=== PATIENT | female | born 1935 | race Caucasian/White ===

== ENCOUNTER 2017-03-29 17:01 | Emergency (ER) | payer MEDICARE, OTHER ==
[2017-03-29] MEDS ORDERED: Take Home: Clindamycin HCl 150 MG Cap, 6 Cap Pack PO ONE (19:06)
[2017-03-29 19:46] VITALS: BP 184/83
--- NOTE | 2017-03-30 05:36 | ER ---
Date of Service: 03/29/2017 SUBJECTIVE: Lily presents to the emergency room with complaints of nose pain post fall. The patient states that she tripped over a rug falling forward and striking her nose on the floor. She states that she did not have loss of consciousness and is able to recall the entire event. The patient states that she is not experiencing any significant headache, nausea, or vomiting. She denies any cervical spinal pain post fall. PAST MEDICAL HISTORY: 1. Tobacco abuse disorder. 2. COPD. She does not have a doctor and is not going for preventive medical treatment. MEDICATIONS: None. ALLERGIES: 1. Zithromax. 2. Cephalexin. 3. Codeine. 4. Levaquin. 5. Penicillin. 6. Sulfa. REVIEW OF SYSTEMS: General: No fever or chills. HEENT: Please see history of present illness. Denies any malocclusion. Chest: Denies any chest contusion or discomfort. Respiratory: No shortness of breath. Cardiac: Denies any substernal chest pain. Gastrointestinal: No nausea, vomiting, or diarrhea. No melena, hematochezia, or hematemesis. Genitourinary: Denies any dysuria. Musculoskeletal: No myalgias or arthralgias. Neurologic: No fainting, blackouts, or lightheadedness. She is not experiencing any decreased level of consciousness or complaints of headache. LABORATORY STUDIES: CT scan of the patient's brain and facial bones was obtained. She did have evidence of minimally displaced mildly angulated nasal bone fracture. ASSESSMENT: Nasal bone fracture. PLAN: I did contact and speak with Dr. Jeffery at [facility]. They stated that the patient could follow up in the clinic in the early part of next week and to call [phone] to set up an appointment. I did start the patient on clindamycin 300 mg 3 times daily for 10 days to decrease her chances of developing osteomyelitis in nasal bone. She can take ibuprofen 600 mg every 6 hours as needed for pain. All questions were answered. MWK: 03/30/2017 04:51:28 MODL: 03/30/2017 05:28:49 /[id number]
--- NOTE | 2017-04-04 01:01 | ER ---
Date of Service: 03/29/2017 ADDENDUM: PHYSICAL EXAMINATION: General: This is an 82-year-old female patient, who is in no acute distress. HEENT: She does have swelling noted to her nose primarily in the right side. She does have some mild deviation of her nose towards the right. She does have evidence of clotted blood in the right naris but no evidence of any bone fragments or fractures passing through the internal or external nasal structures. She does have evidence of some crepitus to the bridge of the nose. No obvious other midface trauma noted. No other head or facial trauma. CHEST: Lungs are clear to auscultation. No chest wall trauma. Heart: Regular rate and rhythm. Abdomen: Soft and nontender. There is no hepatosplenomegaly or masses noted. Extremities: Without any acute traumatic findings. Neurologic: The patient is alert, oriented, answers all questions appropriately. Spine: No midline C-spine, thoracic, or lumbar discomfort on palpation. MWK: 04/04/2017 00:12:47 MODL: 04/04/2017 00:51:05 /[id number]
== END 2017-03-29 19:35 | disposition home or self-care (01) ==
LOC: VM.ED 17:01
DX: S02.2XXA Fracture of nasal bones, initial encounter for closed fracture (principal); J44.9 Chronic obstructive pulmonary disease, unspecified; Z88.1 Allergy status to other antibiotic agents; Z88.2 Allergy status to sulfonamides; Z88.5 Allergy status to narcotic agent; Z88.0 Allergy status to penicillin; W18.09XA Striking against other object with subsequent fall, initial encounter
CPT/HCPCS: 70450; 70486; 99284; A9270

== ENCOUNTER 2019-04-04 22:44 | Emergency (ER) | payer MEDICARE, OTHER ==
[2019-04-04 22:59] VITALS: BP 173/71; PULSE 93
[2019-04-04] MEDS ORDERED: Clindamycin HCl 150 MG Cap PO ONE (23:00)
[2019-04-04] MEDS ORDERED: Take Home: Acetaminophen/HYDROcodone 325-5 MG, 5 Tab Pack PO ONE (23:02)
[2019-04-04] MEDS ORDERED: Take Home: Clindamycin HCl 150 MG Cap, 6 Cap Pack PO ONE (23:02)
--- NOTE | 2019-04-05 03:04 | EDM.PDOC ---
ED HPI GENERAL MEDICAL PROBLEM - General Chief Complaint: ENT Problem Stated Complaint: TOOTH PAIN Time Seen by Provider: 04/04/19 22:57 Source of Information: Reports: Patient History Limitations: Reports: No Limitations - History of Present Illness INITIAL COMMENTS - FREE TEXT/NARRATIVE: PtMignon presents to ER with complaints of dental pain. She states that she lost a filling to her R upper premolar. She has noticed some swelling to the gums in this area as well. She states that the discomfort radiates into her R lateral neck and up into ear. Denies any fever or chills. No chest pain or shortness of breath. She states that she has an appointment set and has been told she needs to have the tooth pulled. Onset Date: 04/04/19 Location: Reports: Face Quality: Reports: Ache, Throbbing Right Upper Tooth/Teeth Pain Score (Numeric/FACES): 8 - Related Data Allergies Allergy/AdvReac Type Severity Reaction Status Date / Time azithromycin Allergy Rash Verified 04/04/19 22:46 cephalexin [Cephalexin] Allergy Rash Verified 04/04/19 22:46 codeine Allergy Nausea and Verified 04/04/19 22:46 Vomiting levofloxacin [From Levaquin] Allergy Rash Verified 04/04/19 22:46 Penicillins Allergy Rash Verified 04/04/19 22:46 Sulfa (Sulfonamide Allergy Rash Verified 04/04/19 22:46 Antibiotics) Home Meds: Home Meds Occuvite 1 tab PO BID 04/04/19 [History] Past Medical History HEENT History: Reports: Macular Degeneration Social & Family History - Family History Family Medical History: Noncontributory - Tobacco Use Smoking Status *Q: Current Every Day Smoker Years of Tobacco use: 67 Packs/Tins Daily: 0.7 - Caffeine Use Caffeine Use: Reports: None ED ROS GENERAL - Review of Systems Review Of Systems: See Below Constitutional: Reports: No Symptoms HEENT: Reports: Dental Pain Respiratory: Reports: No Symptoms Cardiovascular: Reports: No Symptoms Endocrine: Reports: No Symptoms GI/Abdominal: Reports: No Symptoms : Reports: No Symptoms Musculoskeletal: Reports: No Symptoms Skin: Reports: No Symptoms Neurological: Reports: No Symptoms Psychiatric: Reports: No Symptoms Hematologic/Lymphatic: Reports: No Symptoms Immunologic: Reports: No Symptoms ED EXAM, GENERAL - Physical Exam Exam: See Below Exam Limited By: No Limitations General Appearance: Alert, WD/WN, No Apparent Distress Eye Exam: Bilateral Eye: EOMI, Normal Inspection Ears: Normal External Exam, Hearing Grossly Normal Ear Exam: Bilateral Ear: Auricle Normal, Canal Normal, Other (mild preauricular discomfort on palpation.) Nose: Normal Inspection, Normal Mucosa, No Blood Throat/Mouth: Normal Inspection, Normal Lips, Normal Gums, Other (unable to fully evaluate oral cavity due to trismus. No unlateral facial or neck swelling. R upper premolar is absent a filling.) Head: Atraumatic, Normocephalic Neck: Normal Inspection, Supple, Non-Tender, Full Range of Motion Course - Vital Signs Last Recorded V/S: Last Vital Signs Temp 36.6 C 04/04/19 22:47 Pulse 93 04/04/19 22:47 Resp 18 04/04/19 22:47 BP 173/71 H 04/04/19 22:47 Pulse Ox 96 04/04/19 22:47 - Orders/Labs/Meds Meds: Medications Discontinued Medications Generic Name Dose Route Start Last Admin Trade Name Penny PRN Reason Stop Dose Admin Hydrocodone Bitart/Acetaminophen 1 packet 04/04/19 23:02 04/04/19 23:06 Take Home: Acetam/Hydrocodon 325-5 Mg, 5 Pack PO 04/04/19 23:03 1 packet ONETIME ONE Administration Clindamycin HCl 300 mg 04/04/19 23:00 Cleocin PO 04/04/19 23:01 ONETIME ONE Clindamycin HCl 1 packet 04/04/19 23:02 04/04/19 23:06 Take Home: Clindamycin Hcl 150 Mg, 6 Cap Pack PO 04/04/19 23:03 1 packet ONETIME ONE Administration Departure - Departure Time of Disposition: 23:21 Disposition: Home, Self-Care 01 Clinical Impression: Dental infection - Discharge Information Instructions: Acetaminophen; Hydrocodone tablets or capsules, Clindamycin capsules, Dental Abscess, Probiotics Referrals: Dillan Lozano MD [Primary Care Provider] - Forms: ED Department Discharge Additional Instructions: Clindamycin 150mg tab 2 tabs three times daily for 10 days [place] 5/325mg 1 tablet every 4-6 hours as needed for pain Get in to see the dentist MEAGAN Take a probiotic while you are taking your antibiotic - Assessment/Plan Plan: Clindamycin 150mg tab 2 tabs three times daily for 10 days [place] 5/325mg 1 tablet every 4-6 hours as needed for pain Get in to see the dentist MEAGAN Take a probiotic while you are taking your antibiotic
== END 2019-04-04 23:21 | disposition home or self-care (01) ==
LOC: VM.ED 22:44
DX: K04.7 Periapical abscess without sinus (principal); F17.210 Nicotine dependence, cigarettes, uncomplicated; Z88.1 Allergy status to other antibiotic agents; Z88.5 Allergy status to narcotic agent; Z88.0 Allergy status to penicillin; Z88.2 Allergy status to sulfonamides
CPT/HCPCS: 99282; 99283; A9270

== ENCOUNTER 2019-05-14 19:49 | Emergency (ER) | payer MEDICARE, OTHER ==
[2019-05-14] MEDS ORDERED: Ketorolac 30 MG/ML SDV IM ONE (20:06)
--- NOTE | 2019-05-14 20:11 | EDM.PDOC ---
ED HPI GENERAL MEDICAL PROBLEM - General Chief Complaint: General Stated Complaint: TOOTH ACHE Time Seen by Provider: 05/14/19 19:52 Source of Information: Reports: Patient History Limitations: Reports: No Limitations - History of Present Illness INITIAL COMMENTS - FREE TEXT/NARRATIVE: Patient comes into the emergency department with complaint of dental pain. Patient states that she has been seen by the dentist and has been prescribed hydrocodone and clindamycin. She's been taking that as prescribed. She states that she doesn't appointment with them on May 18 to have her tooth extracted. That she has been having increased amount of pain over the course of last 2-3 days. She denies taking any ibuprofen. She also denies using any Orajel /mouth numbing medication or ice over the area. She is here to get "an injection for the pain so I can sleep". Patient denies any other concerns or complaints. Onset: Gradual Severity: Moderate Improves with: Reports: None Worsens with: Reports: None Associated Symptoms: Reports: No Other Symptoms Treatments DOG BEHAVIORIST: Reports: Other (see below) (hydrocodone tablets, clindamycin) - Related Data Allergies Allergy/AdvReac Type Severity Reaction Status Date / Time azithromycin Allergy Rash Verified 04/04/19 22:46 cephalexin [Cephalexin] Allergy Rash Verified 04/04/19 22:46 levofloxacin [From Levaquin] Allergy Rash Verified 04/04/19 22:46 Penicillins Allergy Rash Verified 04/04/19 22:46 Sulfa (Sulfonamide Allergy Rash Verified 04/04/19 22:46 Antibiotics) codeine AdvReac Nausea and Verified 04/05/19 08:32 Vomiting Home Meds: Home Meds Occuvite 1 tab PO BID 04/04/19 [History] Past Medical History HEENT History: Reports: Macular Degeneration Social & Family History - Family History Family Medical History: Noncontributory - Caffeine Use Caffeine Use: Reports: None ED ROS ENT - Review of Systems Review Of Systems: ROS reveals no pertinent complaints other than HPI. Constitutional: Reports: No Symptoms HEENT: Reports: No Symptoms Respiratory: Reports: No Symptoms Cardiovascular: Reports: No Symptoms Endocrine: Reports: No Symptoms GI/Abdominal: Reports: No Symptoms : Reports: No Symptoms Musculoskeletal: Reports: No Symptoms Skin: Reports: No Symptoms Neurological: Reports: No Symptoms Psychiatric: Reports: No Symptoms ED EXAM, ENT - Physical Exam Exam: See Below Exam Limited By: No Limitations General Appearance: Alert, WD/WN, No Apparent Distress Nose: Normal Inspection, Normal Mucousa Mouth/Throat: Dental Pain (right back upper tooth ), Dental Tenderness, Gum Swelling Head: Atraumatic, Normocephalic. No: Facial Swelling, Facial Tenderness, Sinus Tenderness Neck: Normal Inspection, Supple, Non-Tender, Full Range of Motion Respiratory/Chest: No Respiratory Distress, No Accessory Muscle Use Cardiovascular: Normal Peripheral Pulses Neurological: Alert, Oriented, Normal Gait Psychiatric: Normal Affect, Normal Mood Skin: Warm, Dry, Intact, Normal Color Course - Orders/Labs/Meds Meds: Medications Discontinued Medications Generic Name Dose Route Start Last Admin Trade Name Freq PRN Reason Stop Dose Admin Ketorolac Tromethamine 30 mg 05/14/19 20:06 Toradol IM 05/14/19 20:07 ONETIME ONE Departure - Departure Time of Disposition: 20:25 Disposition: Home, Self-Care 01 Condition: Good Clinical Impression: Dental infection - Discharge Information *PRESCRIPTION DRUG MONITORING PROGRAM REVIEWED*: Not Applicable (pt brought prescription bottles with her from her dentist.) *COPY OF PRESCRIPTION DRUG MONITORING REPORT IN PATIENT DARSHANA: Not Applicable Instructions: Dental Abscess, [id number] Forms: ED Department Discharge Additional Instructions: 1. eat soft foods through the weekend 2. avoid extreme hot and cold food or liquid items 3. Take medications as prescribed by your dentist 4. Follow up on Thursday as scheduled to have your tooth removed 5. Can place ice over the area to help reduce pain 3 times a day for 20 minutes at a time 6. Can take ibuprofen every 6 hours as needed for discomfort 7. Call with any questions or concerns - Problem List Review Problem List Initiated/Reviewed/Updated: Yes - Assessment/Plan Assessment:: 1. dental pain 2. dental abscess-currently under dental treatment with antibiotic and pain management extraction May 18 Plan: 1. Toradol IM given in the ER. 2. Patient currently has prescription bottles with her hydrocodone and clindamycin that have been provided by her dental provider. Patient does have an appointment scheduled on May 18 have her tooth extracted. 3. Patient is looking for more medications to help with the pain and discomfort. 4. Education provided regarding the use of ibuprofen with pain and discomfort 5. Patient is encouraged to continue with the current medication regiment that her dental provider has authorized. Did discuss with the patient that we will not be providing a secondary pain medication management the ER after another provider has provided adequate amount of pain medication for her current dental concerns. Patient understands this and is willing to accept and IM medication in the ER department. 6. Patient is reminded to follow up with her dentist on May 18 for her tooth extraction. 7. All Questions and concerns were addressed prior to discharge
[2019-05-14 20:53] VITALS: BP 167/74; PULSE 86
== END 2019-05-14 20:42 | disposition home or self-care (01) ==
LOC: VM.ED 19:49
DX: K04.7 Periapical abscess without sinus (principal); Z88.2 Allergy status to sulfonamides; Z88.5 Allergy status to narcotic agent; Z88.0 Allergy status to penicillin; Z88.1 Allergy status to other antibiotic agents; Z79.899 Other long term (current) drug therapy
CPT/HCPCS: 96372; 99282; J1885

== ENCOUNTER 2019-06-15 20:16 | Emergency (ER) | payer MEDICARE, OTHER ==
[2019-06-15] MEDS ORDERED: Take Home: traMADol 50 MG, 4 Tab Pack PO ONE (20:36)
[2019-06-15 20:38] VITALS: BP 170/68; PULSE 89
--- NOTE | 2019-06-16 12:57 | EDM.PDOC ---
ED HPI GENERAL MEDICAL PROBLEM - General Chief Complaint: ENT Problem Stated Complaint: Dental pain Time Seen by Provider: 06/15/19 20:30 Source of Information: Reports: Patient History Limitations: Reports: No Limitations - History of Present Illness INITIAL COMMENTS - FREE TEXT/NARRATIVE: PtMignon presents to ER with pain to her R upper molar area. She states that she had a tooth pulled and was then seen in ER for dental infection. She was given clindamycin and took it until it started feeling better and then stopped. She states that now the pain has returned. She states that the surrounding gums are swollen. No problems with swallowing or managing her oral secretions. She states that it is the same tooth that was causing her pain in the past. Onset Date: 06/15/19 Location: Reports: Head, Face Quality: Reports: Throbbing Right upper gum Pain Score (Numeric/FACES): 8 - Related Data Allergies Allergy/AdvReac Type Severity Reaction Status Date / Time azithromycin Allergy Rash Verified 06/15/19 20:35 cephalexin [Cephalexin] Allergy Rash Verified 06/15/19 20:35 levofloxacin [From Levaquin] Allergy Rash Verified 06/15/19 20:35 Penicillins Allergy Rash Verified 06/15/19 20:35 Sulfa (Sulfonamide Allergy Rash Verified 06/15/19 20:35 Antibiotics) codeine AdvReac Nausea and Verified 06/15/19 20:35 Vomiting Home Meds: Home Meds Clindamycin HCl 300 mg PO TID 06/16/19 [History] traMADol [Ultram] 50 mg PO Q6HR PRN 06/16/19 [History] Past Medical History HEENT History: Reports: Macular Degeneration Social & Family History - Family History Family Medical History: Noncontributory - Caffeine Use Caffeine Use: Reports: None ED ROS GENERAL - Review of Systems Review Of Systems: ROS reveals no pertinent complaints other than HPI. ED EXAM, GENERAL - Physical Exam Exam: See Below Throat/Mouth: Other (Evidence of recent extraction to R upper molar with some cellulitis of surrounding gums. No large abscess noted.) Head: Atraumatic, Normocephalic Neck: Normal Inspection, Supple, Non-Tender, Full Range of Motion Course - Vital Signs Last Recorded V/S: Last Vital Signs Temp 36.8 C 06/15/19 20:16 Pulse 89 06/15/19 20:16 Resp 16 06/15/19 20:16 BP 170/68 H 06/15/19 20:16 Pulse Ox - Orders/Labs/Meds Meds: Medications Discontinued Medications Generic Name Dose Route Start Last Admin Trade Name Penny PRN Reason Stop Dose Admin Tramadol HCl 1 packet 06/15/19 20:36 06/15/19 20:42 Take Home: Tramadol 50 Mg, 4 Tab Pack PO 06/15/19 20:37 1 packet ONETIME ONE Administration Departure - Departure Time of Disposition: 20:57 Disposition: Home, Self-Care 01 Clinical Impression: Dental infection - Discharge Information Instructions: Clindamycin capsules, Tramadol tablets, Dental Abscess Referrals: Dillan Lozano MD [Primary Care Provider] - Forms: ED Department Discharge Additional Instructions: Clindamycin 150mg 2 caps 3 times a day until completely gone Tramadol 50mg 1 every 6 hours as needed for pain Follow-up with dentist MEAGAN. - Assessment/Plan Plan: Clindamycin 150mg 2 caps 3 times a day until completely gone Tramadol 50mg 1 every 6 hours as needed for pain Follow-up with dentist MEAGAN.
== END 2019-06-15 20:57 | disposition home or self-care (01) ==
LOC: VM.ED 20:16
DX: K04.7 Periapical abscess without sinus (principal); Z88.1 Allergy status to other antibiotic agents; Z88.0 Allergy status to penicillin; Z88.2 Allergy status to sulfonamides; Z88.5 Allergy status to narcotic agent
CPT/HCPCS: 99282; A9270; 99283-GF

== ENCOUNTER 2019-06-16 01:20 | Emergency (ER) | payer MEDICARE, OTHER ==
[2019-06-16] MEDS ORDERED: Ketorolac 30 MG/ML SDV IM ONE (01:32)
[2019-06-16] MEDS ORDERED: Take Home: Acetaminophen/HYDROcodone 325-5 MG, 5 Tab Pack PO ONE (01:34)
[2019-06-16 02:01] VITALS: BP 168/71; PULSE 82
--- NOTE | 2019-06-16 13:04 | EDM.PDOC ---
ED HPI GENERAL MEDICAL PROBLEM - General Chief Complaint: ENT Problem Stated Complaint: Dental pain Time Seen by Provider: 06/16/19 01:25 Source of Information: Reports: Patient History Limitations: Reports: No Limitations - History of Present Illness INITIAL COMMENTS - FREE TEXT/NARRATIVE: Pt. was seen in ER earlier in the evening with complaints of dental pain. Please refer to her ED documentation. Pt. was given Tramadol for pain, and presents back to ER requesting "stronger medicine" and "the shot they gave me last time". It appears she was given an injection of toradol as well as [place]. Denies any recent trauma. No change in symptoms, she states that the tramadol is just not working. Onset: Today Location: Reports: Head, Face Treatments RESULTS TECHNICIAN: Reports: Other (see below) Other Treatments RESULTS TECHNICIAN: Clindamycin, Tramadol Right upper dental Pain Score (Numeric/FACES): 10 - Related Data Allergies Allergy/AdvReac Type Severity Reaction Status Date / Time azithromycin Allergy Rash Verified 06/15/19 20:35 cephalexin [Cephalexin] Allergy Rash Verified 06/15/19 20:35 levofloxacin [From Levaquin] Allergy Rash Verified 06/15/19 20:35 Penicillins Allergy Rash Verified 06/15/19 20:35 Sulfa (Sulfonamide Allergy Rash Verified 06/15/19 20:35 Antibiotics) codeine AdvReac Nausea and Verified 06/15/19 20:35 Vomiting Home Meds: Home Meds Clindamycin HCl 300 mg PO TID 06/16/19 [History] traMADol [Ultram] 50 mg PO Q6HR PRN 06/16/19 [History] Past Medical History HEENT History: Reports: Macular Degeneration Social & Family History - Family History Family Medical History: Noncontributory - Caffeine Use Caffeine Use: Reports: None ED ROS GENERAL - Review of Systems Review Of Systems: ROS reveals no pertinent complaints other than HPI. ED EXAM, GENERAL - Physical Exam Exam: See Below Exam Limited By: No Limitations General Appearance: Alert, WD/WN, No Apparent Distress Throat/Mouth: Other (Edema and erythema surrounding R upper molar. No large abscess noted.) Head: Atraumatic, Normocephalic Neck: Normal Inspection, Supple, Non-Tender, Full Range of Motion Course - Vital Signs Last Recorded V/S: Last Vital Signs Temp 36.8 C 06/16/19 01:20 Pulse 82 06/16/19 01:20 Resp 16 06/16/19 01:20 BP 168/71 H 06/16/19 01:20 Pulse Ox - Orders/Labs/Meds Meds: Medications Discontinued Medications Generic Name Dose Route Start Last Admin Trade Name Pneny PRN Reason Stop Dose Admin Hydrocodone Bitart/Acetaminophen 1 packet 06/16/19 01:34 06/16/19 01:35 Take Home: Acetam/Hydrocodon 325-5 Mg, 5 Pack PO 06/16/19 01:35 1 packet ONETIME ONE Administration Ketorolac Tromethamine 15 mg 06/16/19 01:32 06/16/19 01:35 Toradol IM 06/16/19 01:33 15 mg ONETIME ONE Administration Departure - Departure Time of Disposition: 01:50 Disposition: Home, Self-Care 01 Clinical Impression: Dental infection - Discharge Information Instructions: Dental Abscess, [id number] Forms: ED Department Discharge Additional Instructions: Continue with Clindamycin [place] 5/325mg 1 every 4-6 hours as needed for pain Follow-up with dentist MEAGAN. - Assessment/Plan Plan: Continue with Clindamycin [place] 5/325mg 1 every 4-6 hours as needed for pain Follow-up with dentist MEAGAN.
== END 2019-06-16 01:50 | disposition home or self-care (01) ==
LOC: VM.ED 01:20
DX: K04.7 Periapical abscess without sinus (principal); Z88.1 Allergy status to other antibiotic agents; Z88.5 Allergy status to narcotic agent; Z88.0 Allergy status to penicillin
CPT/HCPCS: 96372; 99282; A9270; J1885; 99283-GF

== ENCOUNTER 2019-08-10 15:42 | Emergency (ER) | payer MEDICARE, OTHER ==
--- NOTE | 2019-08-10 16:11 | EDM.PDOC ---
ED HPI GENERAL MEDICAL PROBLEM - General Stated Complaint: SINUS/COLD Time Seen by Provider: 08/10/19 15:57 Source of Information: Reports: Patient History Limitations: Reports: No Limitations - History of Present Illness INITIAL COMMENTS - FREE TEXT/NARRATIVE: Pt with congestion and sinus pressure for 5 days No fever Clear nasal drainage Has not tried OTC meds for symptomatic relief Onset: Gradual Duration: Day(s): (5) Location: Reports: Head, Face - Related Data Allergies Allergy/AdvReac Type Severity Reaction Status Date / Time azithromycin Allergy Rash Verified 06/15/19 20:35 cephalexin [Cephalexin] Allergy Rash Verified 06/15/19 20:35 levofloxacin [From Levaquin] Allergy Rash Verified 06/15/19 20:35 Penicillins Allergy Rash Verified 06/15/19 20:35 Sulfa (Sulfonamide Allergy Rash Verified 06/15/19 20:35 Antibiotics) codeine AdvReac Nausea and Verified 06/15/19 20:35 Vomiting Home Meds: Home Meds traMADol [Ultram] 50 mg PO Q6HR PRN 06/16/19 [History] Past Medical History HEENT History: Reports: Macular Degeneration Social & Family History - Family History Family Medical History: Noncontributory - Caffeine Use Caffeine Use: Reports: None ED ROS ENT - Review of Systems Review Of Systems: See Below HEENT: Reports: Ear Pain, Throat Pain, Other (Sinus pressure Clear nasal drainage) Respiratory: Reports: No Symptoms ED EXAM, ENT - Physical Exam Exam: See Below Exam Limited By: No Limitations Ears: Normal TMs Nose: Clear Rhinorrhea Mouth/Throat: Normal Oropharynx Neck: Supple Respiratory/Chest: Lungs Clear Course - Re-Assessments/Exams Free Text/Narrative Re-Assessment/Exam: 08/10/19 16:09 Pt insists on antibiotics Tried to explain to pt that antibiotics will not improve viral infections Pt to get OTC meds for congestion Departure - Departure Time of Disposition: 16:15 Disposition: Home, Self-Care 01 Clinical Impression: Upper respiratory infection - Discharge Information Instructions: Upper Respiratory Infection, Adult, [id number]
[2019-08-10 16:46] VITALS: BP 178/69; PULSE 97
== END 2019-08-10 16:20 | disposition home or self-care (01) ==
LOC: VM.ED 15:42
DX: J06.9 Acute upper respiratory infection, unspecified (principal); Z88.1 Allergy status to other antibiotic agents; Z88.8 Allergy status to other drugs, medicaments and biological substances; Z88.2 Allergy status to sulfonamides; Z88.0 Allergy status to penicillin; Z88.5 Allergy status to narcotic agent
CPT/HCPCS: 99282-GF; 99283

== ENCOUNTER 2020-04-12 01:15 | Emergency (ER) | payer MEDICARE, OTHER ==
[2020-04-12] MEDS: Ketorolac 30 MG/ML SDV IM ONE (01:51)
[2020-04-12] MEDS ORDERED: Take Home: Acetaminophen/Codeine 300 MG/30 MG, 5 Tab Pack PO ONE (01:54)
--- NOTE | 2020-04-12 01:58 | EDM.PDOC ---
ED HPI GENERAL MEDICAL PROBLEM - General Chief Complaint: Back Pain or Injury Stated Complaint: Low back pain, arthritis Time Seen by Provider: 04/12/20 01:15 Source of Information: Reports: Patient, EMS History Limitations: Reports: No Limitations - History of Present Illness INITIAL COMMENTS - FREE TEXT/NARRATIVE: Patient comes emergency department today with complaints of very low mid back pain. This patient has been struggling with pain in her lower mid back since about 1 PM earlier today. She feels that it is arthritis pain in her back. She does not attribute it to any physical injury. Although she denies having arthritis in her back chronically. She says the pain is fine when she is sitting still but it gets very severe when she tries to move or roll over in bed. She has no flank pain. No hematuria dysuria or urinary frequency. No abdominal pain. No fever or chills. No COVID exposure COVID concerns. No change in her bowel or bladder habits. No paresthesias down her lower legs. She did take a Naprosyn prior to calling the ambulance which was a first thing that she took in 12 hours for her back pain. Upon arrival to the ER her pain is already somewhat improving. He rates her pain a 4 out of 10. - Related Data Allergies Allergy/AdvReac Type Severity Reaction Status Date / Time azithromycin Allergy Rash Verified 04/12/20 01:49 cephalexin [Cephalexin] Allergy Rash Verified 04/12/20 01:49 levofloxacin [From Levaquin] Allergy Rash Verified 04/12/20 01:49 Penicillins Allergy Rash Verified 04/12/20 01:49 Sulfa (Sulfonamide Allergy Rash Verified 04/12/20 01:49 Antibiotics) codeine AdvReac Nausea and Verified 04/12/20 01:49 Vomiting Home Meds: Home Meds Cyclobenzaprine HCl 5 mg PO BID #6 tablet 04/12/20 [Rx] Past Medical History HEENT History: Reports: Macular Degeneration Social & Family History - Family History Family Medical History: Noncontributory - Caffeine Use Caffeine Use: Reports: None ED ROS GENERAL - Review of Systems Review Of Systems: Comprehensive ROS is negative, except as noted in HPI. ED EXAM,LOWER BACK PAIN/INJURY - Physical Exam Exam: See Below Exam Limited By: No Limitations General Appearance: Alert, WD/WN, No Apparent Distress Respiratory/Chest: No Respiratory Distress Cardiovascular: Normal Peripheral Pulses GI/Abdominal: Normal Bowel Sounds, Soft, Non-Tender (Female) Exam: Deferred Rectal (Female) Exam: Deferred Back Exam: Decreased Range of Motion, Muscle Spasm, Paraspinal Tenderness. No: CVA Tenderness (L), CVA Tenderness (R), Vertebral Tenderness Extremities: Normal Inspection, Normal Range of Motion, Normal Capillary Refill Neurological: Alert, Normal Mood/Affect, Normal Dorsiflexion, CN II-XII Intact, Normal Plantar Flexion, Normal Reflexes, No Motor/Sensory Deficits, Oriented x 3 Psychiatric: Normal Affect, Normal Mood Skin Exam: Warm, Dry, Intact, Normal Color Lymphatic: No Adenopathy Course - Orders/Labs/Meds Meds: Medications Discontinued Medications Generic Name Dose Route Start Last Admin Trade Name Penny PRN Reason Stop Dose Admin Acetaminophen/Codeine Phosphate 1 packet 04/12/20 01:54 Take Home: Acetam/Codeine 300-30 Mg, 5 Pack PO 04/12/20 01:55 ONETIME ONE Ketorolac Tromethamine 15 mg 04/12/20 01:32 04/12/20 01:51 Toradol IM 04/12/20 01:33 15 mg ONETIME ONE Administration Orphenadrine Citrate 30 mg 04/12/20 01:32 04/12/20 01:50 Norflex IM 04/12/20 01:33 30 mg NOW STA Administration - Re-Assessments/Exams Free Text/Narrative Re-Assessment/Exam: 04/12/20 02:55 Patient was given 15 mg of Toradol and 30 mg and Norflex IM. Tiffanie 5 minutes later the patient relates that she would like to go home she is completely pain-free she feels much better. Lizet management for acute low back pain at home. Also consider physical therapy. She can use Tylenol heat or ice. Consider physical therapy if she is not improving rapidly. Discharge directions as below are explained to the patient she was comfortable with this plan and her questions were answered. Departure - Departure Time of Disposition: 01:55 Disposition: Home, Self-Care 01 Clinical Impression: Lower back pain Qualifiers: Chronicity: acute Back pain laterality: midline Sciatica presence: without sciatica Qualified Code(s): M54.5 - Low back pain - Discharge Information Prescriptions: Cyclobenzaprine HCl 5 mg PO BID #6 tablet Instructions: Acute Back Pain, Adult, Back Exercises, [id number], Pain Medicine Instructions, [id number] Forms: ED Department Discharge Additional Instructions: Tylenol as needed for pain. May also use Ibuprofen NSAIDs although use these sparingly and use the Tylenol and FLexeril first. Make sure and stay mobile and active but don't do too much so you don't exacerbate your symptoms. Heat or Ice to the area. Consider physical therapy if not improving over the next 2 days. Contact them directly if you are interested. If pain not controlled with above Flexeril 1 tablet every 6 hrs with food as needed for pain. Caution sedation and drowsiness. RX sent to [facility]. Return to the ED if new or worsening symptoms. Follow up with PCP in the next 4-6 days if not improving sooner if worse.
[2020-04-12 05:51] VITALS: BP 139/77; PULSE 87
== END 2020-04-12 02:16 | disposition home or self-care (01) ==
LOC: VM.ED 01:15
DX: M54.5 Low back pain (principal); Z88.1 Allergy status to other antibiotic agents; Z88.0 Allergy status to penicillin; Z88.2 Allergy status to sulfonamides; Z88.5 Allergy status to narcotic agent
CPT/HCPCS: 96372; 99284; J1885; J2360; 99283

== ENCOUNTER 2020-04-13 08:15 | Observation (INO) | payer MEDICARE, OTHER ==
[2020-04-13] MEDS ORDERED: Sodium Chloride 0.9% 10 ML Syringe FLUSH PRN (08:45)
[2020-04-13] MEDS ORDERED: Morphine 4 MG/ML Syringe IVPUSH ONE (08:45)
[2020-04-13 09:37] LABS: CHLORIDE,CL 106 mmol/L (98-107); SODIUM,NA 142 mmol/L (136-145)
[2020-04-13 09:38] LABS: ANION GAP 14.1 mmol/L (10-20)
--- NOTE | 2020-04-13 09:52 | CT ---
[id number] CT/CT Lumbar Spine WO IV EXAM: NONCONTRAST LUMBAR SPINE CT INDICATION: LOW BACK PAIN. COMPARISON: None. DISCUSSION: A mild T12 compression fracture is age indeterminate, favor subacute. A mild chronic L3 compression fracture has undergone previous vertebroplasty. Straightening of the lumbar lordosis. Slight retrolisthesis L3-L4 and L4-L5. Osteopenia. Mild bronchiectasis in the imaged lung bases. Septal thickening could represent the sequela of edema or interstitial lung disease. Scattered bilateral renal hyperdensities measuring up to 10 mm on the right and 17 mm on the left likely represent hemorrhagic cysts. The left kidney contains a 24 mm cyst. T12-L1: Mild to moderate disc degeneration and moderate bilateral facet arthropathy contribute to at least mild central and bilateral foraminal stenosis. L1-L2: Moderate disc degeneration and mild to moderate bilateral facet arthropathy contribute to at least mild central and bilateral foraminal stenosis. L2-L3: Mild to moderate disc degeneration and mild to moderate bilateral facet arthropathy contribute to mild central and bilateral foraminal stenosis. L3-L4: Moderate disc degeneration and bilateral facet degeneration contribute to moderate central, moderate left and [id number] right foraminal stenosis. L4-L5: Moderate to advanced disc degeneration moderate bilateral facet arthropathy contribute to at least moderate central and bilateral foraminal stenosis. The traversing left L5 nerve root may be compressed within the lateral recess. L5-S1: Moderate disc degeneration and bilateral facet arthropathy contribute to at least moderate central, moderate to advanced right and [id number] left foraminal stenosis. IMPRESSION: 1. Mild age-indeterminate T12 compression fracture, favor subacute. 2. Chronic mild L3 compression fracture status post vertebroplasty. 3. Multilevel lumbar spondylosis as described. Marquez Vargas MD 04/13/20 0950 Thank you for allowing us to participate in the care of your patient.
--- NOTE | 2020-04-13 10:22 | EDM.PDOC ---
ED HPI GENERAL MEDICAL PROBLEM - General Chief Complaint: Back Pain or Injury Stated Complaint: ER Time Seen by Provider: 04/13/20 08:15 Source of Information: Reports: Patient History Limitations: Reports: No Limitations - History of Present Illness INITIAL COMMENTS - FREE TEXT/NARRATIVE: Pt. presents to ER with complaints of low back pain. She denies any trauma. Denies any radiation into her backside of lower extremities. No problems with incontinence saddle anesthesia. Denies any fever or chills. She was seen in ER on the morning of the with complaints of back pain. She was treated with IM injections toradol and norflex. She states that they helped somewhat, but not completely. Pt. has a history of vertebroplasty and arthritis in the past. She states that she often has low back pain, but states that this is much worse than normal. Pt. PCP is Galileo Lozano. To note, he is leaving [facility] here in [place], so the patient is technically unassigned at this time. Onset Date: 04/11/20 Location: Reports: Back Quality: Reports: Ache, Throbbing Severity: Severe Improves with: Reports: Immobilization, Rest Worsens with: Reports: Movement Lower Back Pain Score (Numeric/FACES): 10 - Related Data Allergies Allergy/AdvReac Type Severity Reaction Status Date / Time azithromycin Allergy Rash Verified 04/13/20 09:32 cephalexin [Cephalexin] Allergy Rash Verified 04/13/20 09:32 levofloxacin [From Levaquin] Allergy Rash Verified 04/13/20 09:32 Penicillins Allergy Rash Verified 04/13/20 09:32 Sulfa (Sulfonamide Allergy Rash Verified 04/13/20 09:32 Antibiotics) codeine AdvReac Nausea and Verified 04/13/20 09:32 Vomiting Home Meds: Home Meds Cyclobenzaprine HCl 5 mg PO BID #6 tablet 04/12/20 [Rx] Past Medical History HEENT History: Reports: Macular Degeneration Musculoskeletal History: Reports: Arthritis Social & Family History - Family History Family Medical History: Noncontributory - Tobacco Use Smoking Status *Q: Unknown Ever Smoked - Caffeine Use Caffeine Use: Reports: None ED ROS GENERAL - Review of Systems Review Of Systems: See Below Constitutional: Reports: No Symptoms. Denies: Fever, Chills, Malaise, Weakness, Fatigue, Diaphoresis, Weight Loss, Weight Gain HEENT: Reports: No Symptoms Respiratory: Reports: No Symptoms Cardiovascular: Reports: No Symptoms Endocrine: Reports: No Symptoms GI/Abdominal: Reports: No Symptoms : Reports: No Symptoms Musculoskeletal: Reports: Back Pain Skin: Reports: No Symptoms Neurological: Reports: No Symptoms. Denies: Tingling, Weakness Psychiatric: Reports: No Symptoms Hematologic/Lymphatic: Reports: No Symptoms Immunologic: Reports: No Symptoms ED EXAM, GENERAL - Physical Exam Exam: See Below Exam Limited By: No Limitations General Appearance: Alert, WD/WN, No Apparent Distress Head: Atraumatic, Normocephalic Neck: Normal Inspection, Supple, Non-Tender, Full Range of Motion Respiratory/Chest: No Respiratory Distress, Decreased Breath Sounds (mildly decreased breath sounds, history of smoking. Never formally diagnosed with COPD.) Cardiovascular: Regular Rate, Rhythm, No Edema, No Murmur Peripheral Pulses: 4+: Radial (L) GI/Abdominal: Soft, Non-Tender, No Distention, No Mass (Female) Exam: Deferred Rectal (Female) Exam: Deferred Back Exam: Muscle Spasm, Paraspinal Tenderness, Vertebral Tenderness, Other (Severe pain noted when patient changes positions/stands. No obvious stepoffs or deformity noted on palpation.) Extremities: Normal Inspection, Normal Range of Motion, Non-Tender, No Pedal Edema, Normal Capillary Refill Neurological: Alert, Oriented, CN II-XII Intact, Normal Cognition, Normal Reflexes (2+), No Motor/Sensory Deficits. No: Sensory/Motor Deficit Psychiatric: Normal Affect, Normal Mood Skin Exam: Warm, Dry, Intact, Normal Color, No Rash Course - Vital Signs Last Recorded V/S: Last Vital Signs Temp 36.3 C 04/13/20 08:15 Pulse 85 04/13/20 08:15 Resp 16 04/13/20 08:15 BP 149/79 H 04/13/20 08:15 Pulse Ox 96 04/13/20 08:15 - Orders/Labs/Meds Orders: Active Orders 24 hr Category Date Time Status UA W/MICROSCOPIC [URIN] Stat Lab 04/13/20 08:45 Ordered Sodium Chloride 0.9% [Saline Flush] Med 04/13/20 08:45 Active 10 ml FLUSH ASDIRECTED PRN Peripheral IV Insertion Adult [OM.PC] Routine Oth 08/28/20 08:45 Ordered Medication Orders Sodium Chloride (Saline Flush) 10 ml FLUSH ASDIRECTED PRN PRN Reason: Keep Vein Open Labs: Laboratory Tests 04/13/20 04/13/20 Range/Units 09:10 09:10 WBC 7.3 (4.0-10.0) x10^3/uL RBC 4.96 (4.00-5.50) x10^6/uL Hgb 15.4 (12.0-16.0) g/dL Hct 46.4 (33.0-47.0) % MCV 93.5 H (78.0-93.0) fL MCH 31.0 (26.0-32.0) pg MCHC 33.2 (32.0-36.0) g/dL RDW Coeff of Elvie 13.8 (10.0-15.0) % Plt Count 175 (130-400) x10^3/uL Neut % (Auto) 77.2 (50.0-80.0) % Lymph % (Auto) 12.7 L (25.0-50.0) % Beckham % (Auto) 7.6 (2.0-11.0) % Eos % (Auto) 2.0 (0.0-4.0) % Baso % (Auto) 0.5 (0.2-1.2) % Sodium 142 (136-145) mmol/L Potassium 4.1 (3.5-5.1) mmol/L Chloride 106 (98-107) mmol/L Carbon Dioxide 26 (21-32) mmol/L Anion Gap 14.1 (10-20) mmol/L BUN 17 (7-18) mg/dL Creatinine 0.9 (0.55-1.02) mg/dL Est Cr Clr Drug Dosing TNP Estimated GFR (MDRD) 60 Glucose 99 (74-106) mg/dL Calcium 9.0 (8.5-10.1) mg/dL Corrected Calcium 9.08 (8.5-10.1) mg/dL Total Bilirubin 1.0 (0.2-1.0) mg/dL AST 19 (15-37) U/L ALT 22 (14-59) U/L Alkaline Phosphatase 85 (46-116) U/L C-Reactive Protein 0.8 (<=0.9) mg/dL Total Protein 7.4 (6.4-8.2) g/dL Albumin 3.9 (3.4-5.0) g/dL Globulin 3.5 Albumin/Globulin Ratio 1.11 Meds: Medications Generic Name Dose Route Start Last Admin Trade Name Freq PRN Reason Stop Dose Admin Sodium Chloride 10 ml 04/13/20 08:45 Saline Flush FLUSH ASDIRECTED PRN Keep Vein Open Discontinued Medications Generic Name Dose Route Start Last Admin Trade Name Freq PRN Reason Stop Dose Admin Morphine Sulfate 4 mg 04/13/20 08:45 04/13/20 09:17 Morphine IVPUSH 04/13/20 08:46 4 mg ONETIME ONE Administration - Radiology Interpretation Free Text/Narrative:: Probable subacute compression fx. at T12. Osteoporosis. Chronic L3 compression fx. with evidence of previous vertebroplasty. - Re-Assessments/Exams Free Text/Narrative Re-Assessment/Exam: Pt. was given 4 mg IV morphine for pain. She did report moderate improvement in her discomfort. Pt. still very tender, has difficulty getting from sitting to standing position. Departure - Departure Time of Disposition: 10:28 Disposition: Refer to Observation Clinical Impression: Compression fx, thoracic spine - Discharge Information Sepsis Event Note (ED) - Evaluation Sepsis Screening Result: No Definite Risk - Focused Exam Vital Signs: Vital Signs Temp Pulse Resp BP Pulse Ox 04/13/20 08:15 36.3 C 85 16 149/79 H 96 - Problem List Review Problem List Initiated/Reviewed/Updated: Yes - My Orders Last 24 Hours: My Active Orders 04/13/20 08:45 UA W/MICROSCOPIC [URIN] Stat Sodium Chloride 0.9% [Saline Flush] 10 ml FLUSH ASDIRECTED PRN Peripheral IV Insertion Adult [OM.PC] Routine - Assessment/Plan Admission H&P: Please use this note as an admission H&P Last 24 Hours: My Active Orders 04/13/20 08:45 UA W/MICROSCOPIC [URIN] Stat Sodium Chloride 0.9% [Saline Flush] 10 ml FLUSH ASDIRECTED PRN Peripheral IV Insertion Adult [OM.PC] Routine Plan: At this point, I feel it is not safe for the patient to be discharged home. She does not have anyone who can help her transfer at her apartment. Will start the patient on oral hydrocodone with morphine for breakthrough pain. PT and OT to see. I spoke with Dr. Yun, Neurosurgeon at [facility]. He suggested an "off the shelf" PET ADOPTION COUNSELOR brace for the patient which will need to be ordered from [facility] accessories. He suggested MRI of the T and L spine and stated that this could wait until Thursday when it is available locally. I am still awaiting UA results, but she has not urinated yet. Pt. will be admitted obs. She is a code 1.
[2020-04-13] MEDS ORDERED: Acetaminophen/HYDROcodone 325-10 MG Tab PO PRN (10:44)
[2020-04-13] MEDS ORDERED: Simethicone 80 MG Tab.Chew PO PRN (18:37)
[2020-04-13] MEDS ORDERED: Docusate Sodium 100 MG Cap PO PRN (18:39)
[2020-04-14] MEDS: Beta-Carotene (Vitamin A) w/Vitamin C & E plus Minerals Tab PO SCH (09:19)
--- NOTE | 2020-04-14 14:02 | PCM.PN ---
- General Info Date of Service: 04/14/20 Admission Dx/Problem (Free Text): T12 compression fracture Functional Status: Reports: Pain Controlled, Tolerating Diet, Ambulating, Urinating - Review of Systems General: Denies: Weakness, Fatigue, Malaise HEENT: Reports: No Symptoms Pulmonary: Denies: Shortness of Breath, Cough Cardiovascular: Denies: Chest Pain, Edema, Lightheadedness Gastrointestinal: Denies: Abdominal Pain, Constipation, Nausea, Vomiting Genitourinary: Reports: No Symptoms Musculoskeletal: Reports: Back Pain Skin: Reports: Bruising Neurological: Reports: No Symptoms - Patient Data Vitals - Most Recent: Last Vital Signs Temp 98.8 F 04/14/20 10:00 Pulse 76 04/14/20 10:00 Resp 12 04/14/20 10:00 BP 143/83 H 04/14/20 10:00 Pulse Ox 94 L 04/14/20 10:00 Weight - Most Recent: 154 lb 14.4 oz I&O - Last 24 Hours: Intake & Output 04/13/20 04/14/20 04/14/20 22:59 06:59 14:59 Intake Total 180 360 Output Total 600 Balance 180 -600 360 Med Orders - Current: Current Medications Hydrocodone Bitart/Acetaminophen (Dante 325-10 Mg) 1 tab PO Q4H PRN PRN Reason: Pain (moderate 4-6) Docusate Sodium (Colace) 100 mg PO BID PRN PRN Reason: Constipation Multivitamins/Minerals (Prosight) 1 tab PO DAILY [facility] Last Admin: 04/14/20 09:19 Dose: 1 tab Documented by: Naproxen (Naproxen Sodium) 220 mg PO BIDMEALS [facility] Last Admin: 04/14/20 09:19 Dose: 220 mg Documented by: Simethicone (Simethicone) 80 mg PO Q4H PRN PRN Reason: Abdominal Pain Last Admin: 04/13/20 19:56 Dose: 80 mg Documented by: Sodium Chloride (Saline Flush) 10 ml FLUSH ASDIRECTED PRN PRN Reason: Keep Vein Open Discontinued Medications Morphine Sulfate (Morphine) 4 mg IVPUSH ONETIME ONE Stop: 04/13/20 08:46 Last Admin: 04/13/20 09:17 Dose: 4 mg Documented by: - Exam General: Alert, Oriented, Cooperative HEENT: Mucous Membr. Moist/[place] Neck: Supple Lungs: Clear to Auscultation, Normal Respiratory Effort, Decreased Breath Sounds Cardiovascular: Regular Rate, Regular Rhythm GI/Abdominal Exam: Normal Bowel Sounds, Soft, Non-Tender Back Exam: Normal Inspection, Vertebral Tenderness (lower lumbar spine. Denies tenderness near T12 of the noted compression fracture) Extremities: Other (bruising noted to distal foot and toes on right; has good range of motion) Skin: Warm, Dry Neurological: No New Focal Deficit Sepsis Event Note - Evaluation Sepsis Screening Result: No Definite Risk - Focused Exam Vital Signs: Vital Signs Temp Pulse Resp BP Pulse Ox 04/14/20 10:00 98.8 F 76 12 143/83 H 94 L 04/14/20 05:38 98.2 F 78 14 136/85 96 04/14/20 02:25 97.8 F 82 18 117/55 L 95 - Problem List & Annotations (1) Compression fx, thoracic spine SNOMED Code(s): 015447522 Code(s): S22.000A - WEDGE COMPRESSION FRACTURE OF UNSP THORACIC VERTEBRA, INIT Status: Acute Priority: High Current Visit: Yes Qualifiers: Thoracic vertebra fracture level: T12 - Problem List Review Problem List Initiated/Reviewed/Updated: Yes - Assessment Assessment:: T12 compression fracture - Plan Plan:: Patient is doing well today. Rates pain at a 0 while at rest, 2-3 with getting up to bathroom. Has only been taking Aleve at this point, not asking for pain meds. States "not a pain pill person". Ambulating to bathroom with walker. Appetite fair. Lung sounds are diminished but clear. Vertebral exam shows mild sacral tenderness with palpation, no tenderness near T12. Has bruising noted to right foot. Nontender. Will continue with PT, OT, pain meds as needed. Nephew is aware of admission, does live close to her and checks on her daily. Patient does not feel yet ready for discharge, possibly in next 24-48 hours. Back brace will be placed today.
[2020-04-15 06:14] VITALS: PULSE 82
[2020-04-15] MEDS: Beta-Carotene (Vitamin A) w/Vitamin C & E plus Minerals Tab PO SCH (09:18)
[2020-04-15 10:43] VITALS: BP 148/76
--- NOTE | 2020-04-15 11:07 | PCM.DCSUM1 ---
Discharge Summary - Hospital Course Free Text/Narrative:: Patient presented to ER x2 for low back pain. Was initially seen on for low back pain, was given Toradol and Norflex, which she admitted helped "some" but returned back to ER for pain. Has history of chronic low back pain, vertebroplasty for compression fractures. Labs are all normal. CT scan of back was done and showed T12 compression fracture. Was given morphine, did cause sedation. Admitted for pain control. Diagnosis: Stroke: No Modified [place] Scale: No Symptoms at All Modified [place] Scale Score: 0 - Discharge Data Discharge Date: 04/15/20 Discharge Disposition: Home, Self-Care 01 Condition: Fair - Referral to Home Health Primary Care Physician: Dillan Lozano MD - Discharge Diagnosis/Problem(s) (1) Compression fx, thoracic spine SNOMED Code(s): 017318097 ICD Code: S22.000A - WEDGE COMPRESSION FRACTURE OF UNSP THORACIC VERTEBRA, INIT Status: Acute Priority: High Current Visit: Yes Qualifiers: Thoracic vertebra fracture level: T12 - Patient Summary/Data Complications: none Consults: Consultations 04/13/20 10:52 Consult to Physical Therapy [PT Evaluation and Treatment] [CONS] Routine 04/13/20 10:53 OT Evaluation and Treatment [CONS] Routine 04/13/20 13:28 Consult to Case Management/Buildings Painter [CONS] Routine Hospital Course: Patient is doing well. Ambulating well to bathroom. Denies much for pain today, has only been taking Aleve during admission. Nephew feels comfortable with her returning home at this point, does check on her daily. She does have periods of confusion here and he is aware. Will need to establish care with new provider on discharge as her PCP is leaving [place]. Continue Aleve and Flexeril at home. - Patient Instructions Diet: Usual Diet as Tolerated Activity: As Tolerated - Discharge Plan *PRESCRIPTION DRUG MONITORING PROGRAM REVIEWED*: No *COPY OF PRESCRIPTION DRUG MONITORING REPORT IN PATIENT DARSHANA: No Prescriptions/Med Rec: Beta-Carotene(A) w/C & E/Min [Prosight] 1 tab PO DAILY #30 tablet Home Medications: Home Meds Cyclobenzaprine HCl 5 mg PO BID #6 tablet 04/12/20 [Rx] Beta-Carotene(A) w/C & E/Min [Prosight] 1 tab PO DAILY #30 tablet 04/15/20 [Rx] Forms: ED Department Discharge Referrals: Dillan Lozano MD [Primary Care Provider] - (Follow up with primary care provider in one week) - Discharge Summary/Plan Comment DC Time >30 min.: No - General Info Date of Service: 04/15/20 Admission Dx/Problem (Free Text: T12 compression fracture Functional Status: Reports: Pain Controlled, Tolerating Diet, Ambulating, Urinating - Review of Systems General: Denies: Fever, Weakness, Fatigue, Malaise HEENT: Reports: No Symptoms Pulmonary: Denies: Shortness of Breath, Cough Cardiovascular: Denies: Chest Pain, Edema, Lightheadedness Gastrointestinal: Denies: Abdominal Pain, Nausea, Vomiting Genitourinary: Reports: No Symptoms Musculoskeletal: Reports: Back Pain (none at present) Skin: Reports: Bruising Neurological: Reports: Confusion - Patient Data Vitals - Most Recent: Last Vital Signs Temp 98.1 F 04/15/20 10:00 Pulse 82 04/15/20 10:00 Resp 16 04/15/20 10:00 BP 148/76 H 04/15/20 10:00 Pulse Ox 92 L 04/15/20 10:00 Weight - Most Recent: 154 lb 14.4 oz I&O - Last 24 hours: Intake & Output 04/14/20 04/15/20 04/15/20 22:59 06:59 14:59 Intake Total 180 180 Output Total 100 425 Balance 80 -425 180 Med Orders - Current: Current Medications Hydrocodone Bitart/Acetaminophen ([place] 325-10 Mg) 1 tab PO Q4H PRN PRN Reason: Pain (moderate 4-6) Docusate Sodium (Colace) 100 mg PO BID PRN PRN Reason: Constipation Multivitamins/Minerals (Prosight) 1 tab PO DAILY [facility] Last Admin: 04/15/20 09:18 Dose: Not Given Documented by: Naproxen (Naproxen Sodium) 220 mg PO BIDMEALS [facility] Last Admin: 04/15/20 09:18 Dose: Not Given Documented by: Simethicone (Simethicone) 80 mg PO Q4H PRN PRN Reason: Abdominal Pain Last Admin: 04/13/20 19:56 Dose: 80 mg Documented by: Sodium Chloride (Saline Flush) 10 ml FLUSH ASDIRECTED PRN PRN Reason: Keep Vein Open Last Admin: 04/14/20 21:32 Dose: 10 ml Documented by: Discontinued Medications Morphine Sulfate (Morphine) 4 mg IVPUSH ONETIME ONE Stop: 04/13/20 08:46 Last Admin: 04/13/20 09:17 Dose: 4 mg Documented by: - Exam General: Reports: Alert, Oriented, Cooperative HEENT: Reports: Mucous Membr. Moist/[place] Neck: Reports: Supple Lungs: Reports: Clear to Auscultation, Normal Respiratory Effort Cardiovascular: Reports: Regular Rate, Regular Rhythm GI/Abdominal Exam: Normal Bowel Sounds, Soft, Non-Tender Back Exam: Reports: Normal Inspection. Denies: Vertebral Tenderness Extremities: Normal Inspection, Other (bruising noted to right lateral foot and toes. Nontender. ) Skin: Reports: Warm, Dry, Ecchymosis Neurological: Reports: No New Focal Deficit
== END 2020-04-15 12:40 | disposition home or self-care (01) ==
LOC: VM.ED 08:15 → VM.MS 10:07
PROVIDERS: ADMIT Physician Assistant; ATTEND Physician Assistant
DX: S22.080A Wedge compression fracture of T11-T12 vertebra, initial encounter for closed fracture (principal); Z88.1 Allergy status to other antibiotic agents; Z88.2 Allergy status to sulfonamides; Z88.0 Allergy status to penicillin; Z88.5 Allergy status to narcotic agent; X58.XXXA Exposure to other specified factors, initial encounter
CPT/HCPCS: 72131; 80053; 81001; 85025; 86140; 96374; 99217; 99220; 99225; 99284-25; A9270-GY; G0378; J2270

== ENCOUNTER 2020-04-30 08:45 | Observation (INO) | payer MEDICARE, OTHER ==
[2020-04-30] MEDS ORDERED: Cyclobenzaprine 10 MG Tab PO ONE (08:55)
[2020-04-30] MEDS ORDERED: Acetaminophen 325 MG Tab PO ONE (08:55)
--- NOTE | 2020-04-30 09:01 | EDM.PDOC ---
ED HPI GENERAL MEDICAL PROBLEM - General Chief Complaint: Back Pain or Injury Stated Complaint: BACK PAIN Time Seen by Provider: 04/30/20 08:45 Source of Information: Reports: Patient, EMS - History of Present Illness INITIAL COMMENTS - FREE TEXT/NARRATIVE: Lily is an 85 y/o female who is brought to the ER by EMS after she called 911. She was trying to get out of bed and could not stand up due to low back pain. She has a known history of compression fractures and she even had an MRI ordered for today at 0930 here at the hospital. She was seen in the ER on 04/12/2020 for the same symptoms. She knew that she could not get down the steps to her apt today due to the pain. She has not taken anything for pain. When she tries to move her legs, they just spasm. She denies wanting anything stronger than APAP at this time until after her MRI. She recently saw Elder Carlson PA-C at the [facility] who ordered the MRI. Lower Back Pain Score (Numeric/FACES): 4 - Related Data Allergies Allergy/AdvReac Type Severity Reaction Status Date / Time azithromycin Allergy Rash Verified 04/30/20 08:59 cephalexin [Cephalexin] Allergy Rash Verified 04/30/20 08:59 levofloxacin [From Levaquin] Allergy Rash Verified 04/30/20 08:59 Penicillins Allergy Rash Verified 04/30/20 08:59 Sulfa (Sulfonamide Allergy Rash Verified 04/30/20 08:59 Antibiotics) codeine AdvReac Nausea and Verified 04/30/20 08:59 Vomiting Home Meds: Home Meds Cyclobenzaprine HCl 5 mg PO BID #6 tablet 04/12/20 [Rx] Beta-Carotene(A) w/C & E/Min [Prosight] 1 tab PO DAILY #30 tablet 04/15/20 [Rx] Past Medical History HEENT History: Reports: Macular Degeneration Musculoskeletal History: Reports: Arthritis Social & Family History - Family History Family Medical History: Noncontributory - Caffeine Use Caffeine Use: Reports: None Review of Systems - Review of Systems Review Of Systems: See Below Constitutional: Reports: No Symptoms Eyes: Reports: No Symptoms Ears: Reports: No Symptoms Nose: Reports: No Symptoms Mouth/Throat: Reports: No Symptoms Respiratory: Reports: No Symptoms Cardiovascular: Reports: No Symptoms GI/Abdominal: Reports: No Symptoms Genitourinary: Reports: No Symptoms Musculoskeletal: Reports: Back Pain Skin: Reports: No Symptoms Neurological: Reports: Difficulty Walking, Weakness Psychiatric: Reports: No Symptoms ED EXAM, GENERAL - Physical Exam Exam: See Below General Appearance: Alert, WD/WN (Elderly female, unable to move due to pain) Eye Exam: Bilateral Eye: PERRL Ears: Hearing Grossly Normal Nose: Normal Inspection, Normal Mucosa Throat/Mouth: Normal Inspection Head: Atraumatic, Normocephalic Neck: Normal Inspection Respiratory/Chest: No Respiratory Distress, Lungs Clear, Chest Non-Tender Cardiovascular: Regular Rate, Rhythm GI/Abdominal: Normal Bowel Sounds, Soft, Non-Tender (Female) Exam: Deferred Rectal (Female) Exam: Deferred Back Exam: Vertebral Tenderness Extremities: Normal Inspection, Normal Capillary Refill, Other (Note spasms in legs when trying to move legs) Neurological: Alert, Oriented, CN II-XII Intact Psychiatric: Normal Affect, Normal Mood Skin Exam: Warm, Dry, Intact, Normal Color Lymphatic: No Adenopathy Course - Vital Signs Text/Narrative:: 0845 The patient was seen by the CERTIFIED COURT/MEDICAL INTERPRETER. She was offered pain meds after exam, but declined until after her MRI is done. She agreed to take APAP 650mg and Cyclobenzaprine 5mg po. 1130 Patient back from her outpatient MRI exam. C/O of dizziness. CERTIFIED COURT/MEDICAL INTERPRETER offered patient admission for pain control to which she adamantly refused. CERTIFIED COURT/MEDICAL INTERPRETER offered transfer to [place] for admission for pain control, patient declined that at this time and wants to know if [facility] got her set up with Ortho for an appt. Will feed patent lunch, let her rest and reassess her pain/dizziness. 1154 Patient tells RN that she is willing to stay the night for pain control. Will plan Observation admission. Reviewed previous CT report and note t12 compression fracture. See orders for Observation Admission Last Recorded V/S: Last Vital Signs Temp 36.7 C 04/30/20 08:45 Pulse 87 04/30/20 10:15 Resp 18 04/30/20 10:15 BP 187/82 H 04/30/20 10:15 Pulse Ox 96 04/30/20 10:15 - Orders/Labs/Meds Orders: Medication Orders Hydrocodone Bitart/Acetaminophen ([place] 325-5 Mg) 1 tab PO Q4H PRN PRN Reason: Pain (moderate 4-6) Morphine Sulfate (Morphine) 2 mg IVPUSH Q2H PRN PRN Reason: Pain (severe 7-10) Nicotine (Habitrol) 21 mg TRDERM DAILY [facility] Non-Formulary Medication (Cyclobenzaprine Hcl [Cyclobenzaprine Hcl]) 5 mg PO BID [place] Ondansetron HCl (Zofran Odt) 4 mg PO Q4H PRN PRN Reason: nausea, able to take PO Meds: Medications Generic Name Dose Route Start Last Admin Trade Name Freq PRN Reason Stop Dose Admin Hydrocodone Bitart/Acetaminophen 1 tab 04/30/20 11:57 [place] 325-5 Mg PO Q4H PRN Pain (moderate 4-6) Morphine Sulfate 2 mg 04/30/20 11:57 Morphine IVPUSH Q2H PRN Pain (severe 7-10) Nicotine 21 mg 04/30/20 12:00 Habitrol TRDERM DAILY [place] Non-Formulary Medication 5 mg 04/30/20 20:00 Cyclobenzaprine Hcl [Cyclobenzaprine Hcl] PO BID [facility] Ondansetron HCl 4 mg 04/30/20 11:57 Zofran Odt PO Q4H PRN nausea, able to take PO Discontinued Medications Generic Name Dose Route Start Last Admin Trade Name Freq PRN Reason Stop Dose Admin Acetaminophen 650 mg 04/30/20 08:55 04/30/20 09:02 Tylenol PO 04/30/20 08:56 650 mg NOW ONE Administration Cyclobenzaprine HCl 5 mg 04/30/20 08:55 04/30/20 09:02 Flexeril PO 04/30/20 08:56 5 mg ONETIME ONE Administration Departure - Departure Time of Disposition: 11:55 Disposition: Admitted As Inpatient 66 Condition: Good Clinical Impression: Acute pain, T12 compression fracture - Discharge Information *PRESCRIPTION DRUG MONITORING PROGRAM REVIEWED*: No *COPY OF PRESCRIPTION DRUG MONITORING REPORT IN PATIENT DARSHANA: No Sepsis Event Note (ED) - Evaluation Sepsis Screening Result: No Definite Risk - Focused Exam Vital Signs: Vital Signs Temp Pulse Resp BP Pulse Ox 04/30/20 10:15 87 18 187/82 H 96 04/30/20 08:45 36.7 C 89 18 183/81 H 98 - Problem List Review Problem List Initiated/Reviewed/Updated: Yes - Assessment/Plan Assessment:: 1)Acute Pain 2)T12 Compression Fracture 3)Hx Tobacco Use Plan: -Will admit patient to Observation for pain management, PT, & assistance with ADLs -Outpatient MRI results pending -Will check with [facility] to see of Ortho referral has been made
[2020-04-30] MEDS ORDERED: Morphine 2 MG/ML SYRINGE IVPUSH PRN (11:57)
[2020-04-30] MEDS ORDERED: Ondansetron 4 MG Tab.DIS PO PRN (11:57)
[2020-04-30] MEDS ORDERED: Nicotine 21 MG/24 Hr Patch TRDERM SCH (12:00)
[2020-04-30] MEDS: Nicotine 21 MG/24 Hr Patch TRDERM SCH (12:53)
[2020-04-30] MEDS: Cyclobenzaprine 10 MG Tab PO SCH ×2 (14:48→19:50)
[2020-04-30] MEDS ORDERED: Cyclobenzaprine 10 MG Tab PO SCH (20:00)
[2020-05-01] MEDS: Acetaminophen/HYDROcodone 325-5 MG Tab PO PRN (00:32)
--- NOTE | 2020-05-01 09:51 | PCM.PN ---
- General Info Date of Service: 05/01/20 Admission Dx/Problem (Free Text): 1)Acute Pain 2)T12 Compression Fx Subjective Update: Lily is seen on rounds. She is very anxious to get to [place] to see Ortho. The MRI results are still pending. She reports getting nauseated from the pain meds and muscle relaxers today, but she has not taken any antiemetics. She is still requiring help to get to the bathroom. She has not been incontinent, but she thinks the pain is worse and she is needing more help to get up. - Review of Systems General: Reports: No Symptoms HEENT: Reports: No Symptoms Pulmonary: Reports: No Symptoms Cardiovascular: Reports: No Symptoms Gastrointestinal: Reports: No Symptoms Genitourinary: Reports: No Symptoms Musculoskeletal: Reports: Back Pain Skin: Reports: No Symptoms Neurological: Reports: No Symptoms Psychiatric: Reports: No Symptoms - Patient Data Vitals - Most Recent: Last Vital Signs Temp 36.6 C 05/01/20 06:00 Pulse 80 05/01/20 06:00 Resp 18 05/01/20 06:00 BP 138/91 H 05/01/20 06:00 Pulse Ox 94 L 05/01/20 06:00 Weight - Most Recent: 66.678 kg I&O - Last 24 Hours: Intake & Output 04/30/20 05/01/20 05/01/20 22:59 06:59 14:59 Intake Total 0 200 Output Total 800 Balance 0 -600 Med Orders - Current: Current Medications Hydrocodone Bitart/Acetaminophen ([place] 325-5 Mg) 1 tab PO Q4H PRN PRN Reason: Pain (moderate 4-6) Last Admin: 05/01/20 00:32 Dose: 1 tab Documented by: Cyclobenzaprine HCl (Flexeril) 5 mg PO TID [facility] Last Admin: 04/30/20 19:50 Dose: 5 mg Documented by: Morphine Sulfate (Morphine) 2 mg IVPUSH Q2H PRN PRN Reason: Pain (severe 7-10) Nicotine (Habitrol) 21 mg TRDERM DAILY@1200 [facility] Last Admin: 04/30/20 12:53 Dose: Not Given Documented by: Ondansetron HCl (Zofran Odt) 4 mg PO Q4H PRN PRN Reason: nausea, able to take PO Discontinued Medications Acetaminophen (Tylenol) 650 mg PO NOW ONE Stop: 04/30/20 08:56 Last Admin: 04/30/20 09:02 Dose: 650 mg Documented by: Cyclobenzaprine HCl (Flexeril) 5 mg PO ONETIME ONE Stop: 04/30/20 08:56 Last Admin: 04/30/20 09:02 Dose: 5 mg Documented by: Cyclobenzaprine HCl (Flexeril) 5 mg PO BID [facility] Nicotine (Habitrol) 21 mg TRDERM DAILY [facility] Last Admin: 04/30/20 12:26 Dose: Not Given Documented by: - Exam General: Alert, Oriented (elderly female) HEENT: Mucous Membr. Moist/[place] (Grossly intact), Other Neck: Supple Lungs: Normal Respiratory Effort Cardiovascular: Regular Rate, Regular Rhythm GI/Abdominal Exam: Soft, Non-Tender (Female) Exam: Deferred Back Exam: Vertebral Tenderness (lower lumbar region) Extremities: Normal Inspection, No Pedal Edema, Normal Capillary Refill Skin: Warm, Dry, Intact Neurological: No New Focal Deficit Psy/Mental Status: Alert, Normal Affect, Normal Mood Sepsis Event Note - Evaluation Sepsis Screening Result: No Definite Risk - Focused Exam Vital Signs: Vital Signs Temp Pulse Resp BP Pulse Ox 05/01/20 06:00 36.6 C 80 18 138/91 H 94 L 05/01/20 02:00 36.9 C 63 16 122/59 L 96 04/30/20 22:00 36.3 C 81 16 143/73 H 93 L - Problem List Review Problem List Initiated/Reviewed/Updated: Yes - My Orders Last 24 Hours: My Active Orders 04/30/20 11:57 Patient Status [ADT] Routine Oxygen Therapy [RC] .PRN Up With Assistance [RC] PT Evaluation and Treatment [CONS] Routine Acetaminophen/HYDROcodone [[place] 325-5 MG] 1 tab PO Q4H PRN Morphine 2 mg IVPUSH Q2H PRN Ondansetron [Zofran ODT] 4 mg PO Q4H PRN Resuscitation Status Routine 04/30/20 12:30 Nicotine [Habitrol] 21 mg TRDERM DAILY@1200 04/30/20 14:15 Cyclobenzaprine [Flexeril] 5 mg PO TID 04/30/20 Dinner Regular Diet [DIET] - Assessment Assessment:: 1)Acute Pain 2)T12 Compression Fx - Plan Plan:: -Will schedule the Zofran to help with the nausea related to pain meds and muscle relaxers. Patient reluctant to take pain meds, but was encouraged to do regularly to help with the pain. -Will contact [facility] Elder Ramos PA-C to see if MRI report is back. -Will attempt to get the MRI results and then contact Ortho today in [place]. Mark harris has placed a consult with Ortho, but no appt has yet been made, pending the MRI.
[2020-05-01] MEDS: Cyclobenzaprine 10 MG Tab PO SCH ×3 (12:24→21:24)
[2020-05-01] MEDS: Ondansetron 4 MG Tab.DIS PO SCH ×4 (12:25→23:50)
[2020-05-01] MEDS: Nicotine 21 MG/24 Hr Patch TRDERM SCH (12:26)
[2020-05-02] MEDS: Ondansetron 4 MG Tab.DIS PO SCH ×5 (03:10→18:19)
[2020-05-02] MEDS: Cyclobenzaprine 10 MG Tab PO SCH ×2 (08:45→12:32)
--- NOTE | 2020-05-02 10:32 | PCM.PN ---
- General Info Date of Service: 05/02/20 Admission Dx/Problem (Free Text): 1)Acute Pain 2)T12 Compression Fx Subjective Update: Patient having better pain control. Nausea improved with the Zofran. She is still having a great deal of pain when getting up to the bathroom and at times needs more stand by assistance. Patient is very anxious to get to [place] to see the surgeon. Doing okay without any tobacco use for 2 days now, refused nicotine patch. Functional Status: Reports: Pain Controlled - Review of Systems General: Reports: No Symptoms HEENT: Reports: No Symptoms Pulmonary: Reports: No Symptoms Cardiovascular: Reports: No Symptoms Gastrointestinal: Reports: No Symptoms Genitourinary: Reports: No Symptoms Musculoskeletal: Reports: Back Pain Skin: Reports: No Symptoms Neurological: Reports: No Symptoms Psychiatric: Reports: No Symptoms - Patient Data Vitals - Most Recent: Last Vital Signs Temp 36.0 C L 05/02/20 05:21 Pulse 80 05/02/20 05:21 Resp 16 05/02/20 05:21 BP 125/64 05/02/20 05:21 Pulse Ox 97 05/02/20 05:21 Weight - Most Recent: 66.678 kg I&O - Last 24 Hours: Intake & Output 05/01/20 05/02/20 05/02/20 22:59 06:59 14:59 Intake Total 240 180 Balance 240 180 Med Orders - Current: Current Medications Hydrocodone Bitart/Acetaminophen ([place] 325-5 Mg) 1 tab PO Q4H PRN PRN Reason: Pain (moderate 4-6) Last Admin: 05/01/20 00:32 Dose: 1 tab Documented by: Cyclobenzaprine HCl (Flexeril) 5 mg PO TID [facility] Last Admin: 05/02/20 08:45 Dose: 5 mg Documented by: Morphine Sulfate (Morphine) 2 mg IVPUSH Q2H PRN PRN Reason: Pain (severe 7-10) Nicotine (Habitrol) 21 mg TRDERM DAILY@1200 [facility] Last Admin: 05/01/20 12:26 Dose: Not Given Documented by: Ondansetron HCl (Zofran Odt) 4 mg PO Q4H [facility] Last Admin: 05/02/20 06:42 Dose: Not Given Documented by: Discontinued Medications Acetaminophen (Tylenol) 650 mg PO NOW ONE Stop: 04/30/20 08:56 Last Admin: 04/30/20 09:02 Dose: 650 mg Documented by: Cyclobenzaprine HCl (Flexeril) 5 mg PO ONETIME ONE Stop: 04/30/20 08:56 Last Admin: 04/30/20 09:02 Dose: 5 mg Documented by: Cyclobenzaprine HCl (Flexeril) 5 mg PO BID [facility] Nicotine (Habitrol) 21 mg TRDERM DAILY [facility] Last Admin: 04/30/20 12:26 Dose: Not Given Documented by: Ondansetron HCl (Zofran Odt) 4 mg PO Q4H PRN PRN Reason: nausea, able to take PO - Exam General: Alert, Oriented (Elderly female), No Acute Distress HEENT: Pupils Equal, Mucous Membr. Moist/[place] Neck: Supple Lungs: Clear to Auscultation, Normal Respiratory Effort Cardiovascular: Regular Rate, Regular Rhythm GI/Abdominal Exam: Normal Bowel Sounds, Soft (Female) Exam: Deferred Back Exam: Vertebral Tenderness (+ tenderness over the lower lumbar region) Extremities: Normal Inspection, No Pedal Edema, Normal Capillary Refill Skin: Warm, Dry, Intact Neurological: No New Focal Deficit Psy/Mental Status: Alert, Normal Affect, Normal Mood Sepsis Event Note - Evaluation Sepsis Screening Result: No Definite Risk - Focused Exam Vital Signs: Vital Signs Temp Pulse Resp BP Pulse Ox 05/02/20 05:21 36.0 C L 80 16 125/64 97 - Problem List Review Problem List Initiated/Reviewed/Updated: Yes - My Orders Last 24 Hours: My Active Orders 05/01/20 10:00 Ondansetron [Zofran ODT] 4 mg PO Q4H - Assessment Assessment:: 1)Acute Pain 2)T12 Compression Fx - Plan Plan:: -Contacted [facility] and presented the case. Dr Ramos is the hospitalist that accepted the patient at 0935. Due to excessive census will need to hold patient here on Med/Surg until a bed is available. -Plan transfer to [facility]. To be transported via ground ambulance.
[2020-05-02] MEDS: Nicotine 21 MG/24 Hr Patch TRDERM SCH (12:32)
[2020-05-02] MEDS: Acetaminophen/HYDROcodone 325-5 MG Tab PO PRN ×2 (15:08→18:18)
[2020-05-02 18:29] VITALS: BP 137/72; PULSE 72
== END 2020-05-02 18:25 | disposition short-term general hospital (02) ==
LOC: VM.ED 08:45 → VM.MS 11:57
PROVIDERS: ADMIT Nurse Practitioner Family; ATTEND Nurse Practitioner Family
DX: M54.5 Low back pain (principal); M48.54XA Collapsed vertebra, not elsewhere classified, thoracic region, initial encounter for fracture; Z88.0 Allergy status to penicillin; Z88.1 Allergy status to other antibiotic agents; Z88.2 Allergy status to sulfonamides; Z88.5 Allergy status to narcotic agent; Z72.0 Tobacco use
CPT/HCPCS: 97161-GP; 99284; A9270-GY; G0378

== ENCOUNTER 2021-05-29 19:33 | Emergency (ER) | payer MEDICARE, OTHER ==
[2021-05-29] MEDS ORDERED: Take Home: Acetaminophen/Codeine 300 MG/30 MG, 5 Tab Pack PO ONE (19:38)
[2021-05-29 19:39] VITALS: BP 195/97; PULSE 118
[2021-05-29] MEDS: Take Home: Acetaminophen/HYDROcodone 325-5 MG, 5 Tab Pack PO ONE (19:50)
[2021-05-29] MEDS: Take Home: Clindamycin HCl 150 MG Cap, 6 Cap Pack PO ONE (19:50)
--- NOTE | 2021-05-30 05:45 | EDM.PDOC ---
ED HPI GENERAL MEDICAL PROBLEM - General Stated Complaint: TOOTH PAIN Time Seen by Provider: 05/29/21 19:45 Source of Information: Reports: Patient History Limitations: Reports: No Limitations - History of Present Illness INITIAL COMMENTS - FREE TEXT/NARRATIVE: Pt. presents to ER with complaints of dental pain. Pt. has a history of frequent visits for dental pain. She is complaining of pain to L lower molar. She states that her pain is "10/10" and she is quite upset. Pt. denies any fever or chills. No chest pain or shortness of breath. No abdominal pain. Denies any headache, lightheadedness. No complaints of problems swallowing, swelling to the back of her mouth/throat. She states that she sees Elder Carlson at the clinic. Onset: Today Quality: Reports: Ache Tooth/Teeth Pain Score (Numeric/FACES): 8 - Related Data Allergies Allergy/AdvReac Type Severity Reaction Status Date / Time azithromycin Allergy Rash Verified 05/04/20 13:19 cephalexin [Cephalexin] Allergy Rash Verified 04/30/20 08:59 codeine Allergy Facial Verified 05/04/20 13:18 Swelling levofloxacin [From Levaquin] Allergy Facial Verified 05/04/20 13:19 Swelling Penicillins Allergy Facial Verified 05/04/20 13:19 Swelling Sulfa (Sulfonamide Allergy Rash Verified 04/30/20 08:59 Antibiotics) Home Meds: Home Meds Cyclobenzaprine HCl 5 mg PO BID #6 tablet 04/12/20 [Rx] Beta-Carotene(A) w/C & E/Min [Prosight] 1 tab PO DAILY #30 tablet 04/15/20 [Rx] Past Medical History HEENT History: Reports: Macular Degeneration Musculoskeletal History: Reports: Arthritis Social & Family History - Family History Family Medical History: No Pertinent Family History - Caffeine Use Caffeine Use: Reports: None ED ROS GENERAL - Review of Systems Review Of Systems: See Below Constitutional: Reports: No Symptoms. Denies: Fever, Chills, Malaise, Weakness HEENT: Reports: Dental Pain Respiratory: Reports: No Symptoms Cardiovascular: Reports: No Symptoms Endocrine: Reports: No Symptoms GI/Abdominal: Reports: No Symptoms : Reports: No Symptoms Musculoskeletal: Reports: No Symptoms Skin: Reports: No Symptoms Neurological: Reports: No Symptoms Psychiatric: Reports: No Symptoms Hematologic/Lymphatic: Reports: No Symptoms Immunologic: Reports: No Symptoms ED EXAM, GENERAL - Physical Exam Exam: See Below Exam Limited By: No Limitations General Appearance: Alert, WD/WN, No Apparent Distress Throat/Mouth: Normal Inspection, Normal Lips, Other (missing many teeth. Many teeth are in poor condition. No abscess noted. No swelling to hypopharynx.) Neck: Normal Inspection, Supple, Non-Tender, Full Range of Motion Respiratory/Chest: No Respiratory Distress, Lungs Clear, Normal Breath Sounds, N o Accessory Muscle Use, Chest Non-Tender Cardiovascular: Normal Peripheral Pulses, Regular Rate, Rhythm, No JVD Neurological: Alert, Oriented, CN II-XII Intact, Normal Cognition, Normal Gait, Normal Reflexes, No Motor/Sensory Deficits Psychiatric: Normal Affect, Normal Mood Skin Exam: Warm, Dry, Intact, Normal Color, No Rash Lymphatic: No Adenopathy Course - Vital Signs Last Recorded V/S: Last Vital Signs Temp 36.9 C 05/29/21 19:36 Pulse 118 H 05/29/21 19:36 Resp 17 05/29/21 19:36 BP 195/97 H 05/29/21 19:36 Pulse Ox 95 05/29/21 19:36 - Orders/Labs/Meds Meds: Medications Discontinued Medications Generic Name Dose Route Start Last Admin Trade Name Penny PRN Reason Stop Dose Admin Acetaminophen/Codeine Phosphate 2 packet 05/29/21 19:38 Take Home: Acetaminophen/Codeine 300 Mg/30 Mg, 5 Tab Pack PO 05/29/21 19:39 ONETIME ONE Hydrocodone Bitart/Acetaminophen 2 packet 05/29/21 19:45 05/29/21 19:50 Take Home: Acetaminophen/Hydrocodone 325-5 Mg, 5 Tab Pack PO 05/29/21 19:46 2 packet ONETIME ONE Administration Clindamycin HCl 1 packet 05/29/21 19:38 05/29/21 19:50 Take Home: Clindamycin Hcl 150 Mg Cap, 6 Cap Pack PO 05/29/21 19:39 1 packet ONETIME ONE Administration Departure - Departure Time of Disposition: 20:15 Disposition: Home, Self-Care 01 Clinical Impression: Pain, dental - Discharge Information Instructions: Acetaminophen; Hydrocodone tablets or capsules, Clindamycin capsules Referrals: Elder Carlson PA-C [Primary Care Provider] - Additional Instructions: [place] 5/325mg 1 every 4-6 hours as needed for pain Clindamycin 150mg 1 tab 4 times a day for 10 days Follow-up with dentist tomorrow as planned. Sepsis Event Note (ED) - Evaluation Sepsis Screening Result: No Definite Risk - Focused Exam Vital Signs: Vital Signs Temp Pulse Resp BP Pulse Ox 05/29/21 19:36 36.9 C 118 H 17 195/97 H 95 - Problem List Review Problem List Initiated/Reviewed/Updated: Yes - Assessment/Plan Plan: Pt. will be discharged. Pt. states that she is usually prescribed clindamycin for dental infections, and states that she doesn't tolerate penicillin. She was also started on a short course of norco 5/325mg with instructions to take 1 every 4-6 hours as needed for pain. Advised to follow-up with dentist the following day as planned.
== END 2021-05-29 20:00 | disposition home or self-care (01) ==
LOC: VM.ED 19:33
DX: K08.89 Other specified disorders of teeth and supporting structures (principal); Z88.0 Allergy status to penicillin; Z88.2 Allergy status to sulfonamides; Z88.1 Allergy status to other antibiotic agents; Z88.5 Allergy status to narcotic agent
CPT/HCPCS: 99282; 99283; A9270-GY

== ENCOUNTER 2021-08-28 14:48 | Emergency (ER) | payer MEDICARE, OTHER ==
[2021-08-28 15:01] VITALS: BP 172/83; PULSE 92
[2021-08-28] MEDS ORDERED: Ibuprofen 200 MG Tab PO STA (15:17)
[2021-08-28] MEDS ORDERED: Orphenadrine 60 MG/2 ML Inj IM STA (15:17)
== END 2021-08-28 17:11 | disposition home or self-care (01) ==
LOC: VM.ED 14:48
DX: S22.080A Wedge compression fracture of T11-T12 vertebra, initial encounter for closed fracture (principal); Z88.5 Allergy status to narcotic agent; Z88.0 Allergy status to penicillin; Z88.1 Allergy status to other antibiotic agents; Z88.2 Allergy status to sulfonamides; W18.39XA Other fall on same level, initial encounter; Y92.009 Unspecified place in unspecified non-institutional (private) residence as the place of occurrence of the external cause
CPT/HCPCS: 72131; 96372; 99283-25; A9270-GY; J2360

== ENCOUNTER 2022-11-27 14:38 | Emergency (ER) | payer MEDICARE, OTHER ==
[2022-11-27 15:16] LABS: ANION GAP 13.5 mmol/L (5-15); CHLORIDE,CL 107 mmol/L (98-107); ESTIMATED GFR 71 mL/min (>=60); SODIUM,NA 143 mmol/L (136-145)
[2022-11-27] MEDS ORDERED: fentaNYL 50 MCG/ML SDV IVPUSH ONE (15:24)
[2022-11-27 16:45] VITALS: BP 155/86; PULSE 72
== END 2022-11-27 17:05 | disposition short-term general hospital (02) ==
LOC: VM.ED 14:38
DX: S72.142A Displaced intertrochanteric fracture of left femur, initial encounter for closed fracture (principal); Z88.1 Allergy status to other antibiotic agents; Z88.0 Allergy status to penicillin; Z88.2 Allergy status to sulfonamides; W01.0XXA Fall on same level from slipping, tripping and stumbling without subsequent striking against object, initial encounter; Y92.59 Other trade areas as the place of occurrence of the external cause
CPT/HCPCS: 51702; 73502; 80053; 81001; 85025; 86140; 96374; 99285; J3010; 99284

== ENCOUNTER 2022-12-03 10:53 | Inpatient (IN) | payer MEDICARE, OTHER ==
[2022-12-03] MEDS ORDERED: Acetaminophen 325 MG Tab PO PRN (12:57)
[2022-12-03] MEDS ORDERED: Ondansetron 4 MG Tab.DIS PO PRN (12:57)
[2022-12-03] MEDS ORDERED: Acetaminophen/HYDROcodone 325-5 MG Tab PO PRN (12:57)
[2022-12-03] MEDS ORDERED: Melatonin 3 MG Tab PO PRN (14:23)
[2022-12-03] MEDS ORDERED: Acetaminophen/oxyCODONE 325-5 MG Tab PO PRN (14:23)
[2022-12-03] MEDS: Doxycycline Monohydrate 100 MG Cap PO SCH (20:50)
[2022-12-04] MEDS: Enoxaparin 40 MG/0.4 ML Syringe SUBCUT SCH (09:12)
[2022-12-04] MEDS: Doxycycline Monohydrate 100 MG Cap PO SCH ×2 (09:12→21:01)
[2022-12-04] MEDS: Polyethylene Glycol 3350 Powder 17 GM Packet PO SCH (09:13)
[2022-12-04] MEDS: Nicotine 21 MG/24 Hr Patch TOP SCH (09:13)
[2022-12-05] MEDS: Nicotine 21 MG/24 Hr Patch TOP SCH (09:39)
[2022-12-05] MEDS: Enoxaparin 40 MG/0.4 ML Syringe SUBCUT SCH (09:40)
[2022-12-05] MEDS: Doxycycline Monohydrate 100 MG Cap PO SCH ×2 (09:40→20:02)
[2022-12-05] MEDS: Polyethylene Glycol 3350 Powder 17 GM Packet PO SCH (09:40)
[2022-12-06] MEDS: Doxycycline Monohydrate 100 MG Cap PO SCH (09:11)
[2022-12-06] MEDS: Enoxaparin 40 MG/0.4 ML Syringe SUBCUT SCH (09:11)
[2022-12-06] MEDS: Nicotine 21 MG/24 Hr Patch TOP SCH (09:12)
[2022-12-06] MEDS: Polyethylene Glycol 3350 Powder 17 GM Packet PO SCH (09:14)
[2022-12-07] MEDS: Polyethylene Glycol 3350 Powder 17 GM Packet PO SCH (08:55)
[2022-12-07] MEDS: Enoxaparin 40 MG/0.4 ML Syringe SUBCUT SCH (08:55)
[2022-12-07] MEDS: Nicotine 21 MG/24 Hr Patch TOP SCH (08:56)
[2022-12-08] MEDS: Enoxaparin 40 MG/0.4 ML Syringe SUBCUT SCH (09:17)
[2022-12-08] MEDS: Nicotine 21 MG/24 Hr Patch TOP SCH (09:17)
[2022-12-08] MEDS: Polyethylene Glycol 3350 Powder 17 GM Packet PO SCH (09:18)
[2022-12-09] MEDS: Enoxaparin 40 MG/0.4 ML Syringe SUBCUT SCH (09:34)
[2022-12-09] MEDS: Polyethylene Glycol 3350 Powder 17 GM Packet PO SCH (09:36)
[2022-12-09] MEDS: Nicotine 21 MG/24 Hr Patch TOP SCH (09:36)
[2022-12-10] MEDS: Enoxaparin 40 MG/0.4 ML Syringe SUBCUT SCH (08:08)
[2022-12-10] MEDS: Nicotine 21 MG/24 Hr Patch TOP SCH (08:09)
[2022-12-10] MEDS: Polyethylene Glycol 3350 Powder 17 GM Packet PO SCH ×2 (08:09→08:10)
[2022-12-11] MEDS: Nicotine 21 MG/24 Hr Patch TOP SCH (08:37)
[2022-12-11] MEDS: Enoxaparin 40 MG/0.4 ML Syringe SUBCUT SCH (08:37)
[2022-12-11] MEDS: Polyethylene Glycol 3350 Powder 17 GM Packet PO SCH (08:37)
[2022-12-12] MEDS: Enoxaparin 40 MG/0.4 ML Syringe SUBCUT SCH (09:53)
[2022-12-12] MEDS: Nicotine 21 MG/24 Hr Patch TOP SCH (09:54)
[2022-12-12] MEDS: Polyethylene Glycol 3350 Powder 17 GM Packet PO SCH (09:54)
[2022-12-13] MEDS: Enoxaparin 40 MG/0.4 ML Syringe SUBCUT SCH (18:58)
[2022-12-13] MEDS: Nicotine 21 MG/24 Hr Patch TOP SCH (18:58)
[2022-12-13] MEDS: Polyethylene Glycol 3350 Powder 17 GM Packet PO SCH (18:59)
[2022-12-14] MEDS: Polyethylene Glycol 3350 Powder 17 GM Packet PO SCH (12:56)
[2022-12-14] MEDS: Nicotine 21 MG/24 Hr Patch TOP SCH (12:56)
[2022-12-14] MEDS: Enoxaparin 40 MG/0.4 ML Syringe SUBCUT SCH (13:15)
[2022-12-15] MEDS: Polyethylene Glycol 3350 Powder 17 GM Packet PO SCH (10:16)
[2022-12-15] MEDS: Nicotine 21 MG/24 Hr Patch TOP SCH (10:16)
[2022-12-15] MEDS: Enoxaparin 40 MG/0.4 ML Syringe SUBCUT SCH (10:32)
[2022-12-16] MEDS: Enoxaparin 40 MG/0.4 ML Syringe SUBCUT SCH (09:01)
[2022-12-16] MEDS: Nicotine 21 MG/24 Hr Patch TOP SCH (09:05)
[2022-12-16] MEDS: Polyethylene Glycol 3350 Powder 17 GM Packet PO SCH (09:05)
[2022-12-17] MEDS: Nicotine 21 MG/24 Hr Patch TOP SCH (09:09)
[2022-12-17] MEDS: Enoxaparin 40 MG/0.4 ML Syringe SUBCUT SCH (09:09)
[2022-12-17] MEDS: Polyethylene Glycol 3350 Powder 17 GM Packet PO SCH (09:10)
[2022-12-18 05:47] VITALS: BP 126/68; PULSE 74
[2022-12-18] MEDS: Enoxaparin 40 MG/0.4 ML Syringe SUBCUT SCH (09:56)
[2022-12-18] MEDS: Nicotine 21 MG/24 Hr Patch TOP SCH (09:56)
[2022-12-18] MEDS: Polyethylene Glycol 3350 Powder 17 GM Packet PO SCH (09:57)
== END 2022-12-18 09:35 | DRG 559 ==
LOC: VM.MS 11:27 → UNDODISIN 12-09 16:50
PROVIDERS: ADMIT Family Medicine; ATTEND Family Medicine
DX: S72.142D Displaced intertrochanteric fracture of left femur, subsequent encounter for closed fracture with routine healing (principal); J18.9 Pneumonia, unspecified organism; J44.0 Chronic obstructive pulmonary disease with (acute) lower respiratory infection; G30.1 Alzheimer's disease with late onset; F02.C0 Dementia in other diseases classified elsewhere, severe, without behavioral disturbance, psychotic disturbance, mood disturbance, and anxiety; E78.5 Hyperlipidemia, unspecified; Z66 Do not resuscitate; H35.30 Unspecified macular degeneration; M19.90 Unspecified osteoarthritis, unspecified site; Z86.718 Personal history of other venous thrombosis and embolism; Z79.01 Long term (current) use of anticoagulants; Z88.0 Allergy status to penicillin; Z88.1 Allergy status to other antibiotic agents; Z88.2 Allergy status to sulfonamides; Z88.8 Allergy status to other drugs, medicaments and biological substances; Z88.5 Allergy status to narcotic agent; Z98.49 Cataract extraction status, unspecified eye; Z98.890 Other specified postprocedural states; Z87.891 Personal history of nicotine dependence
CPT/HCPCS: 36415; 85027; 95851-GO; 97110-GP; 97116-GP; 97162-GP; 97165-GO; 97530-GO; 97530-GP; 97535-GO; A9270-GY; J1650